=== PATIENT | female | born 1965 | race African-American/Black ===

== ENCOUNTER 2016-06-18 07:40 | Emergency (ER) | payer OTHER ==
[~2016-06-18] VITALS: Ht 162.6 cm; Wt 52.2 kg
[2016-06-18 07:47] VITALS: BP 147/89
--- NOTE | 2016-06-18 08:19 | ED HEAD/FACIAL INJ COMPLAINT ---
History of Present Illness General Chief Complaint: Fall Stated Complaint: FORD S/P SLIP AND FALL ? LOC Source: patient Exam Limitations: no limitations Vital Signs & Intake/Output Vital Signs & Intake/Output Vital Signs Date Time Temp Pulse Resp B/P Pulse O2 O2 Flow FiO2 Ox Delivery Rate 06/18 0747 97.9 94 16 147/89 96 Room Air ED Intake and Output 06/19 0000 06/18 1200 Intake Total Output Total Balance Patient 115 lb Weight Allergies Coded Allergies: No Known Allergies (06/18/16) Triage Note: PT STATES SHE SLIPPED ON ICE AND HIT THE BACK OF HER HEAD VERY HARD. PT STATES SHE THINKS SHE BALCKED OUT FOR A SPLIT SECOND AND THEN SHE BECAME DIZZY. Triage Nurses Notes Reviewed? yes HPI: Patient presents for evaluation of a head injury status post slip and fall prior to arrival. Patient states that while she was returning from her car she slipped and missed no and hit her head on the pavement. She states that she may have lost consciousness briefly and also saw stars. She has had a diffuse headache since particularly the occipital region where she hit. There is been no associated visual changes vomiting or soft tissue swelling. Patient states that she has no other injuries associated with the fall. She denies use of blood thinners. She likewise denies alcohol or drug use. Past History Travel History Traveled to [place] past 21 day No Medical History Any Pertinent Medical History? see below for history Cardiovascular: hypertension Surgical History Surgical History: non-contributory Psychosocial History Who do you live with Family What is your primary language Irish Tobacco Use: Never used ETOH Use: denies use Illicit Drug Use: denies illicit drug use Family History Hx Contributory? No Review of Systems Review of Systems Constitutional: Reports: no symptoms. EENTM: Reports: no symptoms. Respiratory: Reports: no symptoms. Cardiovascular: Reports: no symptoms. GI: Reports: no symptoms. Genitourinary: Reports: no symptoms. Musculoskeletal: Reports: no symptoms. Skin: Reports: no symptoms. Neurological/Psychological: Reports: headache. Hematologic/Endocrine: Reports: no symptoms. Immunologic/Allergic: Reports: no symptoms. All Other Systems: Reviewed and Negative Physical Exam Physical Exam General Appearance: SEE BELOW Cranial Nerves: SEE BELOW Comments: Gen.: Well-nourished, well-developed, no acute respiratory distress. Head: Normocephalic, atraumatic, mild occipital tenderness bilaterally Eyes: Normal inspection bilaterally, margaret, EOMI Ears: Normal inspection bilaterally, no chong sign Nose: Normal inspection Throat/mouth : Moist mucosa Neck: Supple, full range of motion, no goiter, nontender Heart: Regular rate and rhythm, no murmurs rubs or gallops Lungs: Clear to auscultation bilaterally with normal air entry Chest: Nontender Back: Normal range of motion, nontender Abdomen: Soft, nontender, nondistended, normal bowel sounds Pelvis: Stable and nontender Extremities: Normal range of motion grossly, no tenderness, no cyanosis clubbing or edema Neurologic: Cranial nerves 2 through 12 intact, speech is clear Skin: warm and dry and without ecchymoses or soft tissue swelling or erythema Psychiatric: Calm, cooperative, no apparent delusions or hallucinations Progress Differential Diagnosis: skull fracture, concussion Plan of Care: Head CT Comments: Hospital was on CAT scan diversion when annika presented to the emergency department. She was transferred to [facility] for the CAT scan. She was then subsequently discharged from [facility] and did not return to [facility]. Departure Departure Disposition: OTHER [facility] ([facility]) Condition: Stable Clinical Impression Primary Impression: Head trauma Qualifiers: Encounter type: initial encounter Qualified Code: S09.90XA - Unspecified injury of head, initial encounter Secondary Impressions: Fall Qualifiers: Encounter type: initial encounter Qualified Code: W19.XXXA - Unspecified fall, initial encounter Referrals: BRIAN BAUMANN,SANGEETA Joe (PCP/Family) Departure Forms: Customer Survey General Discharge Information
== END 2016-06-18 12:19 | disposition short-term general hospital (02) ==
LOC: ERH 07:40
DX: S09.90XA Unspecified injury of head, initial encounter (principal); W19.XXXA Unspecified fall, initial encounter; Y93.89 Activity, other specified; Y92.9 Unspecified place or not applicable